=== PATIENT | female | born 1955 | race Caucasian/White ===

== ENCOUNTER → 2021-01-28 | Outpatient (CLI) | payer BC ==
--- NOTE | 2021-01-28 11:59 | REP ---
INDICATION: PAIN. COMPARISON: None. TECHNIQUE: Four views FINDINGS: There is a fracture involving the base of the 5th metatarsal which is minimally displaced. Mild degenerative changes seen throughout the foot. There is a small plantar calcaneal heel spur. There is a type 2 os navicular. IMPRESSION: Fifth metatarsal fracture and other findings as described above. <Electronically signed by Jose David Iverson > 01/28/21 [id number]
== END ==
LOC: M SOG 11:06
PROVIDERS: ATTEND Orthopaedic Surgery Adult Reconstructive Orthopaedic Surgery
DX: S92.351A Displaced fracture of fifth metatarsal bone, right foot, initial encounter for closed fracture (principal)

== ENCOUNTER → 2021-02-12 | Outpatient (CLI) | payer BC ==
--- NOTE | 2021-02-12 13:16 | REP ---
INDICATION: PAIN. COMPARISON: 01/28/2021 TECHNIQUE: AP, lateral, bilateral oblique views of the right foot FINDINGS: Fracture at the base of the 5th metatarsal bone is again identified and essentially unchanged in appearance. Remainder of the examination is essentially age-appropriate. IMPRESSION: Nondisplaced fracture at the base of the 5th metatarsal bone unchanged compared to 01/28/2021. <Electronically signed by Laron Gomez > 02/12/21 [id number]
== END ==
LOC: M SOG 09:15
PROVIDERS: ATTEND Orthopaedic Surgery Adult Reconstructive Orthopaedic Surgery
DX: S92.351A Displaced fracture of fifth metatarsal bone, right foot, initial encounter for closed fracture (principal); W18.30XA Fall on same level, unspecified, initial encounter; Y92.009 Unspecified place in unspecified non-institutional (private) residence as the place of occurrence of the external cause

== ENCOUNTER → 2021-03-12 | Outpatient (CLI) | payer BC ==
--- NOTE | 2021-03-12 14:19 | REP ---
INDICATION: 5TH METATARSAL FX. COMPARISON: 02/12/2021 TECHNIQUE: Four views FINDINGS: The margins of the previously described fracture involving the base of the 5th metatarsal are now indistinct consistent with callus formation from healing. There are no other significant changes. IMPRESSION: Healing fracture as described above. <Electronically signed by Jose David Iverson > 03/12/21 [id number]
== END ==
LOC: M SOG 12:52
PROVIDERS: ATTEND Orthopaedic Surgery Adult Reconstructive Orthopaedic Surgery
DX: S92.354S Nondisplaced fracture of fifth metatarsal bone, right foot, sequela (principal); W18.30XS Fall on same level, unspecified, sequela; Y92.009 Unspecified place in unspecified non-institutional (private) residence as the place of occurrence of the external cause

== ENCOUNTER → 2021-04-18 | Outpatient (CLI) | payer BC ==
--- NOTE | 2021-04-18 15:34 | REP ---
INDICATION: TOE PAIN WITH METATARSAL FX. COMPARISON: Comparison right foot radiographs March 12, 2021. TECHNIQUE: AP and lateral views of the right foot. FINDINGS: AP and lateral views of the right foot demonstrate the previously noted fracture in the proximal end of the 5th metatarsal unchanged in position or appearance from the March 12, 2021 study. Plantar heel spurring is seen. There is mild diffuse osteopenia. IMPRESSION: Proximal 5th metatarsal fracture unchanged in position. <Electronically signed by Micheal Dunlap > 04/18/21 [id number]
--- NOTE | 2021-04-18 15:37 | REP ---
INDICATION: TOE PAIN WITH METATARSAL FX. COMPARISON: Comparison foot radiographs March 12, 2021. TECHNIQUE: AP and lateral views of the right forefoot are provided. FINDINGS: AP and lateral views of the right forefoot show developmental fusion of the D IP joint of the 5th digit. No fracture or subluxation is evident. Diffuse osteopenia is noted. IMPRESSION: No forefoot fracture or subluxation seen. The proximal 5th metatarsal fracture is visible on the lateral radiograph. <Electronically signed by Micheal Dunlap > 04/18/21 [id number]
--- NOTE | 2021-04-18 16:20 | REP ---
INDICATION: TOE DISLOCATION. COMPARISON: Comparison is made with right forefoot views obtained earlier on this date. TECHNIQUE: Oblique and repeat lateral view with the 5th toe held in extension. FINDINGS: There is an obliquely oriented fracture through the distal end of the proximal phalanx of the 5th toe seen on the oblique radiograph. There is very slight override. no displacement seen on lateral radiograph. IMPRESSION: Proximal phalangeal fracture 5th toe. <Electronically signed by Micheal Dunlap > 04/18/21 [id number]
== END ==
LOC: M SOG 15:11
PROVIDERS: ATTEND Orthopaedic Surgery Adult Reconstructive Orthopaedic Surgery
DX: S92.354S Nondisplaced fracture of fifth metatarsal bone, right foot, sequela (principal); M79.674 Pain in right toe(s); W18.30XS Fall on same level, unspecified, sequela; Y92.009 Unspecified place in unspecified non-institutional (private) residence as the place of occurrence of the external cause